=== PATIENT | female | born 1995 | race Caucasian/White ===

== ENCOUNTER 2017-08-13 10:26 | Day surgery (SDC) | payer OTHER ==
[2017-08-13] MEDS ORDERED: BUPIVACAINE HCL 0.5%-EPI 1:200000 INJ/PF 30 ML VIAL ONE (11:06)
[2017-08-13] MEDS ORDERED: MIDAZOLAM 2 MG/2 ML INJ ONE (11:12)
[2017-08-13] MEDS ORDERED: DEXAMETHASONE SOD PHOS INJ 10 MG/1 ML VIAL ONE (11:13)
[2017-08-13] MEDS ORDERED: LIDOCAINE 2% INJ-PF (20 MG/ML) 10 ML AMPUL ONE (11:13)
[2017-08-13] MEDS ORDERED: ONDANSETRON HCL INJ/PF 4 MG/2 ML SDV ONE (11:13)
[2017-08-13] MEDS ORDERED: GLYCOPYRROLATE INJ 0.4 MG/2 ML VIAL ONE (11:13)
[2017-08-13] MEDS ORDERED: FENTANYL CITRATE INJ/PF 100 MCG/2 ML AMPUL ONE (11:13)
[2017-08-13] MEDS ORDERED: SUCCINYLCHOLINE CHLORIDE INJ 200 MG/10 ML VIAL ONE (11:13)
[2017-08-13] MEDS ORDERED: PROPOFOL INJ 200 MG/20 ML VIAL IV ONE (11:14)
--- NOTE | 2017-08-14 09:38 | [facility]ARE OPERATIVE REPORT E ---
[facility] Operative Report NAME: LAUREN CONNELLY AGE: 21Y DATE OF SURGERY: 08/13/2017 ROOM: PREOPERATIVE DIAGNOSES: 1. Recurrent acute tonsillitis. 2. Chronic tonsillitis. POSTOPERATIVE DIAGNOSIS: 1. Recurrent acute tonsillitis. 2. Chronic tonsillitis. OPERATION PERFORMED: Bilateral tonsillectomy, age greater than 12 years old. SURGEON: VIRGIE REGAN D.O. ANESTHESIA: General endotracheal tube. ANESTHESIA STAFF: Kayla Rivera CRNA ESTIMATED BLOOD LOSS: 10 mL. FLUIDS: 650 mL. COMPLICATIONS: None. DRAINS: None. SPONGE COUNT: Verified MATERIALS: 1. Left and right tonsillar tissue. FINDINGS: 1. The left tonsil was noted to be 2+, was endophytic in nature, and was cryptic. 2. The right tonsil was 2-3+ in size and exophytic in nature, and was cryptic in appearance. 3. The soft palatal tissues were redundant in nature and the uvula was unremarkable in appearance. 4. Mild bright red blood noted in the mid aspect of the adenoid area secondary to the soft suction catheter abrading this area. INDICATIONS: This is a 21-year-old female patient who was seen and evaluated in the [facility]. The patient had been referred for and she complained of a longstanding history of recurrent tonsillitis episodes, occurring each year and treated with antibiotics over the years. With episodes the patient experienced a significant sore throat and discomfort. The patient has also complained of a longstanding history of chronic tonsillitis symptoms with history consistent with keratosis pharyngeus over the years. She has desired to undergo tonsil surgery over the years to move beyond her tonsil problems. After extensive discussion with the patient, recommendation and plan was made to proceed with a tonsillectomy. The procedure and all of its risks and complications were all discussed in detail with the patient. She voiced an understanding of the described surgical plan, agreed to proceed, and consent was obtained. PROCEDURE: The patient was taken to the main operating room and placed on the operating room table in the supine position. Appropriate monitors were placed. Using mask and IV access, general anesthesia was induced. The patient was next transorally intubated without difficulty. The patient was rotated 90 degrees and positioned for tonsil surgery. The patient's lips, teeth, tongue and inside of the mouth were inspected and noted to be without defects. There was a mouth gag inserted. It was opened, and the patient was placed into suspension. There was a soft catheter placed through the patient's nose that was used to suspend the soft palate. Findings are as noted above. At this point, the plasma J-hook was used to dissect and remove tonsillar tissue on each side. This device was also used to provide adequate hemostasis. Saline irritation was performed and suctioned. There was adequate hemostasis noted. The nasopharynx/adenoid tissue area was evaluated and noted to have bleeding in the mid central aspect that appeared secondary to the tip of the soft suction catheter abrading the tissue. Clotted blood was suctioned and the plasma J-hook was used to provide adequate hemostasis. The soft catheter was next released and removed from the patient's nose. The mouth gag was removed from the patient's mouth without difficulty. There was no damage to the lips, teeth, tongue, gums, or inside of the mouth. The patient was then returned to the anesthesia staff and was allowed to emerge from general anesthesia. The patient was extubated in the main operating room and was then transported to the post-anesthesia recovery unit in stable condition. There were no complications. DICTATING PHYSICIAN: VIRGIE REGAN D.O. [id number] PHY#: [id number] ID: [id number] JOB#: [id number] ACCT: [id number] cc:VIRGIE REGAN D.O. > MTDD
== END 2017-08-13 13:38 | disposition home or self-care (01) ==
LOC: SC 10:26
PROVIDERS: ATTEND Otolaryngology
PROC: 0CTPXZZ Resection of Tonsils, External Approach (ICD-10-PCS; principal; 2017-08-13 11:15)
DX: J35.01 Chronic tonsillitis (principal); J03.90 Acute tonsillitis, unspecified; A42.89 Other forms of actinomycosis; G43.909 Migraine, unspecified, not intractable, without status migrainosus
CPT/HCPCS: 88304 ×2; 42826; J2250; J3490 ×2; J3010; J0330; J2405; J2704; J1100; 170